=== PATIENT | male | born 1970 | race Caucasian/White ===

== ENCOUNTER 2024-04-07 11:33 | Outpatient (CLI) | payer MEDICARE, OTHER ==
[2024-04-07 13:31] VITALS: BP 116/82; PULSE 72; RESP 18; TEMP 98; O2SAT 98
== END 2024-04-07 13:17 | disposition home or self-care (01) ==
LOC: CSU 11:33 → EDSTATUS 04-09 05:37
PROVIDERS: ATTEND Nurse Practitioner Acute Care
DX: F43.23 Adjustment disorder with mixed anxiety and depressed mood (principal); Z56.89 Other problems related to employment; Z63.9 Problem related to primary support group, unspecified
CPT/HCPCS: 90839; 90840